=== PATIENT | male | born 1980 | race Caucasian/White ===

== ENCOUNTER → 2017-07-01 | Outpatient (CLI) | payer OTHER ==
[~2017-07-01] MED LIST: GADOBUTROL 10 ML VIAL IVP ONE
== END ==
LOC: FIMAGING 09:56
PROVIDERS: ATTEND Nurse Practitioner Family
DX: G44.84 Primary exertional headache (principal); R93.0 Abnormal findings on diagnostic imaging of skull and head, not elsewhere classified
CPT/HCPCS: A9585

== ENCOUNTER → 2017-07-17 | Outpatient (CLI) | payer OTHER ==
[~2017-07-17] MED LIST changes: -GADOBUTROL 10 ML VIAL IVP ONE; +IOPAMIDOL (ISOVUE 370) 100 ML BTL IV ONE
== END ==
LOC: CIMAGING 13:23
PROVIDERS: ATTEND Psychiatry & Neurology Clinical Neurophysiology
DX: G44.84 Primary exertional headache (principal); R29.818 Other symptoms and signs involving the nervous system; R90.89 Other abnormal findings on diagnostic imaging of central nervous system
CPT/HCPCS: 70496-PO; Q9967

== ENCOUNTER → 2018-12-29 | Outpatient (CLI) | payer OTHER | LOC: FIMAGING 14:18 | PROVIDERS: ATTEND Physician Assistant | DX: M67.331 Transient synovitis, right wrist (principal); M24.831 Other specific joint derangements of right wrist, not elsewhere classified ==